=== PATIENT | female | born 1980 | race American Indian/Alaskan Native ===

== ENCOUNTER 2019-05-22 01:28 | Emergency (ER) | payer MEDICAID, OTHER ==
[2019-05-22] MEDS ORDERED: TYLENOL PO ONE (01:37)
[2019-05-22] MEDS ORDERED: TORADOL IV ONE (03:18)
[2019-05-22] MEDS ORDERED: REGLAN IV ONE (03:18)
[2019-05-22] MEDS ORDERED: BENADRYL IV ONE (03:18)
[2019-05-22] MEDS ORDERED: NACL 0.9% 1000 ML 1,000 ML IV ONE ×2 (03:20→03:24)
[2019-05-22 03:55] LABS: Basophils % (Auto) 0.4 % (0.0-1.8); Eosinophils % (Auto) 0.8 % (0.0-4.3); Hematocrit 33.4 % (30.3-42.9); Hemoglobin 11.4 gm/dl (10.1-14.3); Lymphocytes # (Auto) 0.9 K/mm3 (1.2-5.4); Lymphocytes % (Auto) 18.3 % (13.4-35.0); Mean Corpuscular HGB Conc 34 % (30-34); Mean Corpuscular Volume 90 fl (79-97); Monocytes # (Auto) 0.4 K/mm3 (0.0-0.8); Monocytes % (Auto) 7.1 % (0.0-7.3); Platelet Count 220 K/mm3 (140-440); Red Blood Count 3.73 M/mm3 (3.65-5.03); Red Cell Distribution Width 12.8 % (13.2-15.2)
[2019-05-22 04:14] LABS: Alanine Aminotransferase 31 units/L (7-56); Albumin 3.9 g/dL (3.9-5); BUN/Creatinine Ratio 8; Blood Urea Nitrogen 7 mg/dL (7-17); Calcium 8.6 mg/dL (8.4-10.2); Hemolysis Index 7
[2019-05-22] MEDS ORDERED: ROCEPHIN/NS 1 GM/50 ML 1 GM/50 ML BAG IV ONE (04:20)
--- NOTE | 2019-05-22 04:49 | XRay Report ---
CHEST PA AND LATERAL VIEWS INDICATION: headache, fever. COMPARISON: None. FINDINGS: Support devices: None. Heart: Within normal limits. Lungs/Pleura: No acute pulmonary or pleural findings. IMPRESSION: 1. No significant abnormality. Signer Name: Shar Toussaint MD Signed: 05/22/2019 4:44 AM Workstation Name: [id number]
--- NOTE | 2019-05-22 05:38 | Cat Scan Report ---
CT HEAD WITHOUT CONTRAST INDICATION: headache. TECHNIQUE: All CT scans at this location are performed using CT dose reduction for ALARA by means of automated e xposure control. COMPARISON: None available. FINDINGS: HEMORRHAGE: None. EXTRA-AXIAL SPACES: Normal in size and morphology for the patient's age. VENTRICULAR SYSTEM: Normal in size and morphology for the patient's age. BRAIN PARENCHYMA: No acute findings. MIDLINE SHIFT OR HERNIATION: None. ORBITS: Normal as visualized. SOFT TISSUES OF HEAD: Normal. CALVARIUM: Normal. VISUALIZED PARANASAL SINUSES AND MASTOID AIR CELLS: Clear. ADDITIONAL FINDINGS: None. IMPRESSION: 1. No acute intracranial abnormality. Signer Name: Shar Toussaint MD Signed: 05/22/2019 5:34 AM Workstation Name: [id number]
[2019-05-22] MEDS ORDERED: ROCEPHIN IM ONE (05:43)
[2019-05-22 05:44] LABS: Bilirubin,Urine NEG (Negative); Blood,Urine SM (Negative); Color,Urine Yellow (Yellow); Protein,Urine <15 mg/dL mg/dL (Negative); Urobilinogen,Urine < 2.0 mg/dL (<2.0)
[2019-05-22] MEDS ORDERED: ZOFRAN IV ONE (06:18)
[2019-05-22] MEDS ORDERED: MORPHINE IV ONE (06:18)
--- NOTE | 2019-05-22 06:21 | Emergency Department Report ---
ED General Adult HPI - General Chief complaint: Headache Stated complaint: MIGRAINE Time Seen by Provider: 05/22/19 03:20 Source: patient Mode of arrival: Ambulatory Limitations: No Limitations - History of Present Illness Initial comments: Patient is a 38-year-old -[place] female with a history of chronic migraine headaches who presents to the ED with complaint of acute onset persistent severe frontal pressure and headache with nausea, photophobia and blurry vision for the last 2 days. Patient states that she has been taking vuop-smp-[id number] medications like ibuprofen and Tylenol with no relief. Patient also complains of fever, chills, nausea and lack of appetite. Patient states that the migraine headache is typical or her chronic migraine headaches with exacerbation. Patient denies dizziness, lightheadedness, chest pain, shortness of breath, cough, sore throat, vomiting, abdominal pain, dysuria, urinary frequency and urgency, neck pain, change in vision, syncope or seizures. MD Complaint: Migraine headache, sinus headache, nausea, photophobia, fever -: Sudden, days(s) (2) Location: head, face Radiation: non-radiation Severity scale (0 -10): 7 Quality: aching, sharp, constant Consistency: constant Improves with: none Worsens with: none Associated Symptoms: denies other symptoms, fever/chills, headaches, loss of appetite, nausea/vomiting. denies: confusion, chest pain, cough, diaphoresis, malaise, rash, seizure, shortness of breath, syncope, weakness, other Treatments Prior to Arrival: NSAID - Related Data Previous Rx's Medication Instructions Recorded Last Taken Type Amoxicillin/Potassium Clav 1 each PO Q12H #20 tablet 05/22/19 Unknown Rx [Augmentin 875-125 Tablet] Butalb/Acetamin/Caff 50-325-40 1 tab PO Q6HR PRN #20 tab 05/22/19 Unknown Rx [Fioricet 50-325-40] Cyclobenzaprine [Flexeril] 10 mg PO Q8H PRN #12 tablet 05/22/19 Unknown Rx Ketorolac [Toradol] 10 mg PO Q8H PRN #20 tablet 05/22/19 Unknown Rx Ondansetron [Zofran ODT TAB] 8 mg PO Q8HR PRN #21 tab.rapdis 05/22/19 Unknown Rx Allergies Allergy/AdvReac Type Severity Reaction Status Date / Time No Known Allergies Allergy Verified 09/20/18 19:41 ED Review of Systems ROS: Stated complaint: MIGRAINE Other details as noted in HPI Constitutional: chills, fever, malaise Eyes: denies: eye pain, eye discharge, vision change ENT: other (frontal sinus pressure). denies: ear pain, throat pain Respiratory: no symptoms reported. denies: cough, shortness of breath, wheezing Cardiovascular: denies: chest pain, palpitations Endocrine: no symptoms reported Gastrointestinal: nausea. denies: abdominal pain, diarrhea Genitourinary: denies: urgency, dysuria, discharge Musculoskeletal: denies: back pain, joint swelling, arthralgia Skin: denies: rash, lesions Neurological: denies: headache, weakness, paresthesias Psychiatric: denies: anxiety, depression Hematological/Lymphatic: denies: easy bleeding, easy bruising ED Past Medical Hx - Past Medical History Previous Medical History?: Yes Additional medical history: Anemic - Surgical History Past Surgical History?: Yes Additional Surgical History: c section x2 - Social History Smoking Status: Never Smoker Substance Use Type: None - Medications Home Medications: Home Medications Medication Instructions Recorded Confirmed Last Taken Type Amoxicillin/Potassium Clav 1 each PO Q12H #20 tablet 05/22/19 Unknown Rx [Augmentin 875-125 Tablet] Butalb/Acetamin/Caff 50-325-40 1 tab PO Q6HR PRN #20 tab 05/22/19 Unknown Rx [Fioricet 50-325-40] Cyclobenzaprine [Flexeril] 10 mg PO Q8H PRN #12 tablet 05/22/19 Unknown Rx Ketorolac [Toradol] 10 mg PO Q8H PRN #20 tablet 05/22/19 Unknown Rx Ondansetron [Zofran ODT TAB] 8 mg PO Q8HR PRN #21 tab.rapdis 05/22/19 Unknown Rx ED Physical Exam - General Limitations: No Limitations General appearance: alert, in no apparent distress - Head Head exam: Present: atraumatic, normocephalic, normal inspection - Eye Eye exam: Present: normal appearance, PERRL, EOMI. Absent: scleral icterus, conjunctival injection, nystagmus, periorbital swelling, periorbital tenderness Pupils: Present: normal accommodation - ENT ENT exam: Present: normal exam, mucous membranes moist, TM's normal bilaterally, normal external ear exam, other (Palpable severe frontal sinus tenderness) - Neck Neck exam: Present: normal inspection, full ROM. Absent: tenderness, mening ismus, lymphadenopathy, thyromegaly - Respiratory Respiratory exam: Present: normal lung sounds bilaterally. Absent: respiratory distress, wheezes, rales, rhonchi, chest wall tenderness, accessory muscle use - Cardiovascular Cardiovascular Exam: Present: normal rhythm, tachycardia, normal heart sounds. Absent: systolic murmur, diastolic murmur, rubs, gallop - GI/Abdominal GI/Abdominal exam: Present: soft, normal bowel sounds. Absent: distended, tenderness, guarding, hyperactive bowel sounds, hypoactive bowel sounds - Rectal Rectal exam: Present: deferred - Extremities Exam Extremities exam: Present: normal inspection, full ROM, normal capillary refill - Back Exam Back exam: Present: normal inspection, full ROM. Absent: tenderness, CVA tenderness (R), CVA tenderness (L), muscle spasm - Neurological Exam Neurological exam: Present: alert, oriented X3, CN II-XII intact, normal gait, reflexes normal - Psychiatric Psychiatric exam: Present: normal affect, normal mood - Skin Skin exam: Present: warm, dry, intact, normal color. Absent: rash ED Course Vital Signs 05/22/19 05/22/19 01:35 06:45 Temperature 102.2 F H 99.4 F Pulse Rate 100 H 86 Respiratory 18 16 Rate Blood Pressure 136/86 126/81 [Right] O2 Sat by Pulse 100 98 Oximetry - Reevaluation(s) Reevaluation #1: 05/22/19 06:23 Patient is alert and oriented 3, tachycardic and febrile and appears to be in pain but in no acute distress. Labs were drawn, including blood cultures, chest x-ray and head CT scan without contrast were all ordered. Patient was treated for migraine headache medications and was given normal saline IV fluids and empiric treated for acute sinus infection with Rocephin 1 g IV 1. Coronary evaluation, patient's vital signs are stable, fever has resolved and headache has also significantly improved. Head CT scan without contrast shows no acute intracranial abnormalities or hemorrhage. Chest x-ray shows no acute cardiopulmonary abnormalities. Lab test results were reviewed and are all unremarkable with normal lactic acid levels. Although the patient was worked up as a septic patient, the lab test results revealed no sign of sepsis. On reevaluation, patient felt better and was discharged home on medications including antibiotics for acute frontal sinusitis. Patient was advised to return to the ED immediately if symptoms get worse, otherwise follow-up with her primary care physician in 3-5 days for reevaluation. ED Medical Decision Making - Lab Data Result diagrams: 05/22/19 03:25 05/22/19 03:28 - Radiology Data Radiology results: report reviewed, image reviewed Chest x-ray: No acute cardiopulmonary abnormalities Head CT Scan w/o contrast: No acute intracranial abnormalities or hemorrhage - Medical Decision Making Patient is alert and oriented 3, tachycardic and febrile and appears to be in pain but in no acute distress. Labs were drawn, including blood cultures, chest x-ray and head CT scan without contrast were all ordered. Patient was treated for migraine headache medications and was given normal saline IV fluids and empiric treated for acute sinus infection with Rocephin 1 g IV 1. Coronary evaluation, patient's vital signs are stable, fever has resolved and headache has also significantly improved. Head CT scan without contrast shows no acute intracranial abnormalities or hemorrhage. Chest x-ray shows no acute cardiopulmonary abnormalities. Lab test results were reviewed and are all unremarkable with normal lactic acid levels. Although the patient was worked up as a septic patient, the lab test results revealed no sign of sepsis. On reevaluation, patient felt better, fever resolved with treatment and was discharged home on medications including antibiotics for acute frontal sinusitis. Patient was advised to return to the ED immediately if symptoms get worse, otherwise follow-up with her primary care physician in 3-5 days for reevaluation. - Differential Diagnosis Migraine headache; frontal sinusitis; Flu like symptoms, pneumonia, UTI Critical care attestation.: If time is entered above; I have spent that time in minutes in the direct care of this critically ill patient, excluding procedure time. ED Disposition Clinical Impression: Sinus headache, Fever and chills, Acute urinary tract infection Acute frontal sinusitis Qualifiers: Recurrence: non-recurrent Qualified Code(s): J01.10 - Acute frontal sinusitis, unspecified Chronic migraine without aura Qualifiers: Status migrainosus presence: without status migrainosus Intractability: not intractable Qualified Code(s): G43.709 - Chronic migraine without aura, not intractable, without status migrainosus Disposition: DC-01 TO HOME OR SELFCARE Is pt being admited?: No Does the pt Need Aspirin: No Condition: Stable Instructions: Sinusitis (ED), Migraine Headache (ED), Fever in Adults (ED) Additional Instructions: Take medications with food, drink plenty of fluids and follow up with your primary care physician in 3-5 days for reevaluation. Return to the ED immediately if symptoms get worse. Prescriptions: Amoxicillin/Potassium Clav [Augmentin 875-125 Tablet] 1 each PO Q12H #20 tablet Butalb/Acetamin/Caff 50-325-40 [Fioricet 50-325-40] 1 tab PO Q6HR PRN #20 tab PRN Reason: Headache Cyclobenzaprine [Flexeril] 10 mg PO Q8H PRN #12 tablet PRN Reason: Muscle Spasm Ketorolac [Toradol] 10 mg PO Q8H PRN #20 tablet PRN Reason: Pain Ondansetron [Zofran ODT TAB] 8 mg PO Q8HR PRN #21 tab.rapdis PRN Reason: Nausea Referrals: ANDRE AUGUSTINE MD [Primary Care Provider] - 3-5 Days Forms: Accompanied Note, Work/School Release Form(ED) Time of Disposition: 06:29 Print Language: FRENCH
[2019-05-22 06:46] VITALS: BP 126/81
== END 2019-05-22 07:02 | disposition home or self-care (01) ==
LOC: ED 01:28
DX: J01.10 Acute frontal sinusitis, unspecified (principal); G43.709 Chronic migraine without aura, not intractable, without status migrainosus; N39.0 Urinary tract infection, site not specified; Z79.899 Other long term (current) drug therapy
CPT/HCPCS: 36415; 70450; 71046; 80053; 81001; 82140; 84703; 85025; 87040; 87086; 96365; 96375; 99284; J0696; J1200; J1885; J2270; J2405; J2765; J7030; 96361